=== PATIENT | female | born 1965 | race Caucasian/White ===

== ENCOUNTER 2021-07-01 15:57 | Emergency (ER) | payer OTHER ==
[2021-07-01 16:06] VITALS: RESP 18; TEMP 97.9
[2021-07-01 17:06] LABS: Basophils % (A) 1 %; Eosinophils # (A) 0.1 k/uL (0-0.7); Eosinophils % (A) 1 %; HCT 39.5 % (34.0-46.0); HGB 13.6 gm/dL (11.4-16.0); Lymphocytes # (A) 2.4 k/uL (1.0-4.8); Lymphocytes % (A) 28 %; MCH 30.7 pg (25.0-35.0); MCHC 34.3 g/dL (31.0-37.0); MCV 89.3 fL (80.0-100.0); Mean Platelet Volume 7.6; Monocytes # (A) 0.5 k/uL (0-1.0); Monocytes % (A) 6 %; Neutrophils # (A) 5.4 k/uL (1.3-7.7); Neutrophils % (A) 64 %; Platelet Count 268 k/uL (150-450); RBC 4.42 m/uL (3.80-5.40); RDW 11.9 % (11.5-15.5); WBC 8.5 k/uL (3.8-10.6)
[2021-07-01 17:14] LABS: ALT 22 U/L (4-34); AST 33 U/L (14-36); African American GFR (CKD) >90 (>60 ml/min/1.73 sqM); Albumin 4.2 g/dL (3.5-5.0); Alkaline Phosphatase 74 U/L (38-126); Anion Gap 10 mmol/L; Blood Urea Nitrogen 18 mg/dL (7-17); Calcium 9.4 mg/dL (8.4-10.2); Carbon Dioxide 24 mmol/L (22-30); Chloride 104 mmol/L (98-107); Glucose 109 mg/dL (74-99); Non-African American GFR(CKD) >90 (>60 ml/min/1.73 sqM); Potassium 3.5 mmol/L (3.5-5.1); Sodium 138 mmol/L (137-145); Total Bilirubin 0.5 mg/dL (0.2-1.3); Total Protein 6.8 g/dL (6.3-8.2)
[2021-07-01] MEDS ORDERED: MORPHINE SULFATE 4 MG/ML SYRINGE IVP STA (17:21)
[2021-07-01 17:24] LABS: Partial Thromboplastin Time 22.2 sec (22.0-30.0); Prothrombin Time 10.9 sec (9.0-12.0)
--- NOTE | 2021-07-01 17:40 | ED ---
General Adult HPI - General Chief complaint: Fall Stated complaint: IHS - head injury Source: patient, EMS Mode of arrival: EMS Limitations: no limitations - History of Present Illness Initial comments: Patient is a 55-year-old female who works at [employer]. She states that she was walking when a piece of metal was being tense and it swung and hit her in the abdomen. It pushed her backwards and she landed on her tailbone. Patient and additionally fell backwards and hit her head and losing consciousness for about a minute. She was placed in a c-collar and brought into the emergency department complaining of bilateral elbow and wrist pain. She reports to a large hematoma to her head but did not notice any blood at the site. She was nonambulatory. She also reports 2 tailbone pain. No chest pain or short of breath. She denies any abdominal pain. Patient is not on any blood thinners. Denies any numbness, tingling or weakness in her hands. Patient does have some decreased efficiency clerk strength in her bilateral hands due to chronic arthritis. No other alleviating, precipitating or modifying factors - Related Data Allergies Allergy/AdvReac Type Severity Reaction Status Date / Time No Known Allergies Allergy Verified 07/01/21 16:06 Review of Systems ROS Statement: Those systems with pertinent positive or pertinent negative responses have been documented in the HPI. ROS Other: All systems not noted in ROS Statement are negative. Past Medical History History of Any Multi-Drug Resistant Organisms: None Reported Past Surgical History: Appendectomy Additional Past Surgical History / Comment(s): Eye surdery, Appendix removed 1995. Past Psychological History: No Psychological Hx Reported Smoking Status: Never smoker Past Alcohol Use History: None Reported Past Drug Use History: None Reported General Exam Limitations: no limitations General appearance: alert, in no apparent distress Head exam: Present: other (hematoma - occiput. No laceration or abrasion. no palpable step off) Eye exam: Present: normal appearance, PERRL, EOMI. Absent: scleral icterus, conjunctival injection, periorbital swelling ENT exam: Present: normal exam, mucous membranes moist Neck exam: Present: normal inspection. Absent: tenderness, meningismus, lymphadenopathy Respiratory exam: Present: normal lung sounds bilaterally. Absent: respiratory distress, wheezes, rales, rhonchi, stridor Cardiovascular Exam: Present: regular rate, normal rhythm, normal heart sounds. Absent: systolic murmur, diastolic murmur, rubs, gallop, clicks GI/Abdominal exam: Present: soft, normal bowel sounds. Absent: distended, tenderness, guarding, rebound, rigid Extremities exam: Present: normal inspection, full ROM, normal capillary refill. Absent: tenderness, pedal edema, joint swelling, calf tenderness Back exam: Present: normal inspection Neurological exam: Present: alert, oriented X3, CN II-XII intact Psychiatric exam: Present: normal affect, normal mood Skin exam: Present: warm, dry, intact, normal color. Absent: rash Course Vital Signs 07/01/21 07/01/21 07/01/21 15:58 17:00 18:00 Temperature 97.9 F Pulse Rate 75 80 86 Respiratory 18 18 18 Rate Blood Pressure 154/93 130/76 136/80 O2 Sat by Pulse 100 100 99 Oximetry 07/01/21 19:00 Temperature Pulse Rate 84 Respiratory 18 Rate Blood Pressure 148/81 O2 Sat by Pulse 100 Oximetry - Reevaluation(s) Reevaluation #1: 07/01/21 18:43 CT reviewed by myself at this time. Nondisplaced occipital fracture identified however did not receive a call from the radiologist. Reevaluation #2: Spoke with patient - agreeable to transfer. Attempting transfer to [facility] 07/01/21 18:51 Reevaluation #3: still on hold waiting for [facility] 07/01/21 19:24 Reevaluation #4: 07/01/21 19:39 Stopped attempted transfer to [place]. Attempted transfer to [facility]. Accepting doctor is Dr. Rodriguez EKG Findings - EKG Comments: EKG Findings:: EKG demonstrates sinus rhythm with a rate of 77. NC interval 157. QRS 89. QTC of 401. No acute ST segment elevations or depressions concerning for ischemic changes Medical Decision Making - Medical Decision Making Upon arrival patient is placed into room 2. She did not meet trauma criteria and therefore, was not activated. I evaluated the patient was complaining of right elbow and bilateral wrist pain. Patient originally was refusing pain medication however then agreed. She was given 4 mg of morphine. Patient sent for CT of the brain and cervical spine. Does demonstrate a nondisplaced occipital bone fracture. CT of the abdomen and pelvis fails to demonstrate any traumatic injuries. Laboratory studies are within normal limits. X-rays of the chest, right elbow, bilateral forearms and bilateral wrists/hands are negative for any acute injuries. Because of the occipital fracture did recommend neurosurgical evaluation. Patient will be transferred at this time. Did attempt transfer to [facility] who after 40 minutes failed to answer our phone calls. Transfer then attempted to [facility]. Accepting doctor is Dr. Rodriguez. - Lab Data Result diagrams: 07/01/21 16:49 07/01/21 16:49 Lab Results 07/01/21 07/01/21 07/01/21 Range/Units 16:49 16:49 16:49 WBC 8.5 (3.8-10.6) k/uL RBC 4.42 (3.80-5.40) m/uL Hgb 13.6 (11.4-16.0) gm/dL Hct 39.5 (34.0-46.0) % MCV 89.3 (80.0-100.0) fL MCH 30.7 (25.0-35.0) pg MCHC 34.3 (31.0-37.0) g/dL RDW 11.9 (11.5-15.5) % Plt Count 268 (150-450) k/uL MPV 7.6 Neutrophils % 64 % Lymphocytes % 28 % Monocytes % 6 % Eosinophils % 1 % Basophils % 1 % Neutrophils # 5.4 (1.3-7.7) k/uL Lymphocytes # 2.4 (1.0-4.8) k/uL Monocytes # 0.5 (0-1.0) k/uL Eosinophils # 0.1 (0-0.7) k/uL Basophils # 0.0 (0-0.2) k/uL PT 10.9 (9.0-12.0) sec INR 1.0 (<1.2) APTT 22.2 (22.0-30.0) sec Sodium 138 (137-145) mmol/L Potassium 3.5 (3.5-5.1) mmol/L Chloride 104 (98-107) mmol/L Carbon Dioxide 24 (22-30) mmol/L Anion Gap 10 mmol/L BUN 18 H (7-17) mg/dL Creatinine 0.57 (0.52-1.04) mg/dL Est GFR (CKD-EPI)AfAm >90 (>60 ml/min/1.73 sqM) Est GFR (CKD-EPI)NonAf >90 (>60 ml/min/1.73 sqM) Glucose 109 H (74-99) mg/dL Calcium 9.4 (8.4-10.2) mg/dL Total Bilirubin 0.5 (0.2-1.3) mg/dL AST 33 (14-36) U/L ALT 22 (4-34) U/L Alkaline Phosphatase 74 (38-126) U/L Troponin I (0.000-0.034) ng/mL Total Protein 6.8 (6.3-8.2) g/dL Albumin 4.2 (3.5-5.0) g/dL 07/01/21 Range/Units 16:49 WBC (3.8-10.6) k/uL RBC (3.80-5.40) m/uL Hgb (11.4-16.0) gm/dL Hct (34.0-46.0) % MCV (80.0-100.0) fL MCH (25.0-35.0) pg MCHC (31.0-37.0) g/dL RDW (11.5-15.5) % Plt Count (150-450) k/uL MPV Neutrophils % % Lymphocytes % % Monocytes % % Eosinophils % % Basophils % % Neutrophils # (1.3-7.7) k/uL Lymphocytes # (1.0-4.8) k/uL Monocytes # (0-1.0) k/uL Eosinophils # (0-0.7) k/uL Basophils # (0-0.2) k/uL PT (9.0-12.0) sec INR (<1.2) APTT (22.0-30.0) sec Sodium (137-145) mmol/L Potassium (3.5-5.1) mmol/L Chloride (98-107) mmol/L Carbon Dioxide (22-30) mmol/L Anion Gap mmol/L BUN (7-17) mg/dL Creatinine (0.52-1.04) mg/dL Est GFR (CKD-EPI)AfAm (>60 ml/min/1.73 sqM) Est GFR (CKD-EPI)NonAf (>60 ml/min/1.73 sqM) Glucose (74-99) mg/dL Calcium (8.4-10.2) mg/dL Total Bilirubin (0.2-1.3) mg/dL AST (14-36) U/L ALT (4-34) U/L Alkaline Phosphatase (38-126) U/L Troponin I <0.012 (0.000-0.034) ng/mL Total Protein (6.3-8.2) g/dL Albumin (3.5-5.0) g/dL Disposition Clinical Impression: Fall, Concussion, Fracture of occipital bone of skull with loss of consciousness, Blunt abdominal trauma, Right elbow pain, Bilateral wrist pain Disposition: OTHER INSTITUTION NOT DEFINED Condition: Stable Is patient prescribed a controlled substance at d/c from ED?: No Referrals: Aureliano Stephen MD [Primary Care Provider] - 1-2 days - Out of Hospital Transfer - Req. Specs Out of Hospital Transfer - Requested Specifics: Other Emergency Center ([facility])
--- NOTE | 2021-07-01 18:13 | CT ---
EXAMINATION TYPE: CT abdomen pelvis w con DATE OF EXAM: 07/01/2021 COMPARISON: None HISTORY: trauma CT DLP: 880 mGycm Automated exposure control for dose reduction was used. CONTRAST: Performed with IV Contrast, patient injected with 100 mL of Isovue 300. Images obtained from the diaphragm to the floor the pelvis with IV contrast. The lung bases are clear. There is no pleural effusion. Heart size is normal. There is no pericardial effusion. There is small cyst in the superior right lobe of the liver. Gallbladder appears normal. Spleen is in tact. Stomach is intact. There is no evidence of pancreatic mass. There is no adrenal mass. There is a mass on the anterior left kidney which has mixed fat and soft ti ssue density measuring 4.3 cm in maximum dimension. This is consistent with angiomyolipoma. The right kidney appears normal. There is small left renal parapelvic cysts. Delayed images show normal renal excretion. There is no retroperitoneal adenopathy. Bladder distends smoothly. There is no inguinal he rnia. There is no free fluid in the pelvis. Uterus is anteverted. There is no pelvic mass. There is no mesenteric edema. There is no ascites or free air. There is no bowel obstruction. Appendi x not clearly seen. No sign of thickened appendix. The lumbar vertebrae have normal alignment. There is no compression fracture. The bony pelvis is intact. Hip joints are intact. Sacroiliac joints appea r normal. There is no lumbar paraspinal mass. Sacrum and coccyx appear intact. IMPRESSION: No evidence of acute traumatic injury in the abdomen and pelvis. Mixed density left renal mass consistent with angiomyolipoma.
--- NOTE | 2021-07-01 18:19 | CT ---
EXAMINATION TYPE: CT brain cspine wo con DATE OF EXAM: 07/01/2021 COMPARISON: None HISTORY: trauma CT DLP: 1232 mGycm Automated exposure control for dose reduction was used. Images of the brain and cervical spine obtained without contrast. Ventricles of normal size. There is no mass effect or midline shift. There is no sign of intracranial hemorrhage. There is no evidence of cerebral edema. There is linear defect in the left occipital bon e near the midline consistent with a nondisplaced fracture. This extends to the skull base and superi danielle to the lambdoid suture. There is normal aeration of the mastoid sinuses. The cervical vertebra show some mild straightening. There is degenerative mild disc space narrowing a t C5-6 and C6-7 with spurring of the endplates. The posterior elements are intact. Facet joints are i ntact. There is no evidence of focal bone destruction. IMPRESSION: Nondisplaced occipital bone fracture. No acute intracranial abnormality. Mild spondylotic changes in the lower cervical spine. No cervical spine fracture.
--- NOTE | 2021-07-01 18:50 | XR ---
EXAMINATION TYPE: XR chest 2V DATE OF EXAM: 07/01/2021 COMPARISON: 08/22/2013 HISTORY: Pain TECHNIQUE: 2 views FINDINGS: There is no heart failure or confluent pneumonic infiltrate. Heart and mediastinum are norm al. There are chest leads. Costophrenic angles are clear. IMPRESSION: No active cardiopulmonary disease. Normal heart. No change.
[2021-07-01] MEDS ORDERED: ONDANSETRON 4 MG/2 ML VIAL IVP STA (18:52)
--- NOTE | 2021-07-01 18:53 | XR ---
EXAMINATION TYPE: XR elbow complete RT DATE OF EXAM: 07/01/2021 COMPARISON: NONE HISTORY: Pain TECHNIQUE: 3 views FINDINGS: There is no evidence of fracture nor dislocation. Elbow joint spaces are fairly normal. The re is no sign of a joint effusion. IMPRESSION: Negative right elbow exam. No fracture.
--- NOTE | 2021-07-01 18:54 | XR ---
EXAMINATION TYPE: XR forearm bilateral DATE OF EXAM: 07/01/2021 COMPARISON: NONE HISTORY: Pain TECHNIQUE: 4 views FINDINGS: Radius and ulna appear intact. I see no fracture nor dislocation. The wrist joint and elbow joint appear intact. There is no sign of elbow joint effusion. IMPRESSION: Negative left and right forearm exam.
--- NOTE | 2021-07-01 18:58 | XR ---
EXAMINATION TYPE: XR wrist complete BILATERAL DATE OF EXAM: 07/01/2021 COMPARISON: NONE HISTORY: Pain. Injury. TECHNIQUE: 8 views FINDINGS: I see no definite fracture nor dislocation. Metacarpals are intact. Radiocarpal joints are intact. Intercarpal joint spaces are fairly normal. There is no evidence of focal bone destruction. S caphoid bones appear intact. IMPRESSION: Negative bilateral wrist exam. No fracture seen.
[2021-07-01] MEDS ORDERED: diphenhydrAMINE 50 MG/ML 1 ML VIAL IVP STA (19:53)
[2021-07-01] MEDS ORDERED: METOCLOPRAMIDE 5 MG/ML 2 ML VIAL IVP STA (19:53)
[2021-07-01 20:23] VITALS: BP 130/80; PULSE 89
== END 2021-07-01 20:26 | disposition other institution (70) ==
LOC: EC 15:57
DX: S06.0X9A Concussion with loss of consciousness of unspecified duration, initial encounter (principal); W19.XXXA Unspecified fall, initial encounter
CPT/HCPCS: 93005; 80053; 84484; 85025; 85610; 85730; 73110; 73090; 73080; 71046; 72125; 70450; 74177; 99284; 96374; 96375; J2270; J1200; J2765; J2405; Q9967

== ENCOUNTER 2022-02-21 22:06 | Emergency (ER) | payer OTHER ==
[2022-02-22] MEDS ORDERED: ACETAMINOPHEN TAB 325 MG TAB PO STA (00:40)
[2022-02-22] MEDS ORDERED: IBUPROFEN 600 MG TAB PO STA (00:40)
--- NOTE | 2022-02-22 00:46 | ED ---
General Adult HPI - General Chief complaint: Headache Stated complaint: Migraine Time Seen by Provider: 02/22/22 00:30 Source: patient, family, RN notes reviewed, old records reviewed Mode of arrival: wheelchair Limitations: no limitations - History of Present Illness Initial comments: 56-year-old female comes in with aches, chills, headache and nausea since yesterday. she has not had any Tylenol or Motrin today. She does have history of a skull fracture and she is concerned that this may be a migraine headache. -: days(s) (2) Location: head Severity scale (1-10): 8 Quality: aching Consistency: constant Associated Symptoms: malaise, nausea/vomiting (no vomiting), other (body aches) Treatments Prior to Arrival: none - Related Data Allergies Allergy/AdvReac Type Severity Reaction Status Date / Time No Known Allergies Allergy Verified 02/21/22 22:32 Review of Systems ROS Statement: Those systems with pertinent positive or pertinent negative responses have been documented in the HPI. ROS Other: All systems not noted in ROS Statement are negative. Past Medical History Past Medical History: No Reported History History of Any Multi-Drug Resistant Organisms: None Reported Past Surgical History: Appendectomy Additional Past Surgical History / Comment(s): Eye surdery, Appendix removed 1995. Past Psychological History: No Psychological Hx Reported Smoking Status: Never smoker Past Alcohol Use History: None Reported Past Drug Use History: None Reported General Exam Limitations: no limitations General appearance: alert, in no apparent distress Head exam: Present: atraumatic Eye exam: Present: normal appearance. Absent: scleral icterus, conjunctival injection ENT exam: Present: mucous membranes moist Neck exam: Absent: tenderness, meningismus Respiratory exam: Present: normal lung sounds bilaterally. Absent: respiratory distress, wheezes, rales, rhonchi, stridor, chest wall tenderness, accessory muscle use Cardiovascular Exam: Present: regular rate GI/Abdominal exam: Present: soft, distended, tenderness Extremities exam: Present: normal inspection, normal capillary refill Back exam: Absent: tenderness, CVA tenderness (R), CVA tenderness (L), rash noted Neurological exam: Present: alert, oriented X3 Psychiatric exam: Present: normal affect, normal mood Skin exam: Present: warm, dry, normal color. Absent: cyanosis, diaphoretic, petechiae, pallor Course Vital Signs 02/21/22 02/22/22 22:30 01:18 Temperature 99.4 F 98.5 F Pulse Rate 86 96 Respiratory 18 20 Rate Blood Pressure 131/81 117/64 O2 Sat by Pulse 100 100 Oximetry Medical Decision Making - Medical Decision Making patient presents with fever, body aches, nausea and headaches since yesterday. She is covid positive, has not been vaccinated. She was offered paxlovid and d eclined. lungs sounds are clear to auscultation. Vital signs are stable. oxygen saturation is 100% on room air. Abdomen is soft and nontender she was directed to take Tylenol and or Motrin as needed for any body aches or fevers. Increase her fluid intake. She was encourage to take vitamin C, vitamin D and zinc daily to improve immune health. She was offered Zofran and states she has Zofran at home. She was directed to follow up with her primary care doctor next week, return to the emergency room with any new or concerning symptoms. She was also directed to self quarantine for 10 days from symptom onset and 24 hours without fever case discussed with Dr roblero - Lab Data Lab Results 02/21/22 Range/Units 22:33 Influenza Type A (PCR) Not Detected (Not Detectd) Influenza Type B (PCR) Not Detected (Not Detectd) RSV (PCR) Not Detected (Not Detectd) SARS-CoV-2 (PCR) Detected A (Not Detectd) Disposition Clinical Impression: COVID-19 Disposition: HOME SELF-CARE Condition: Good Instructions (If sedation given, give patient instructions): Acute Headache (ED), COVID-19 (Coronavirus Disease 2019) (ED) Additional Instructions: Increase your fluid intake. Tylenol and or Motrin as needed for body aches of fevers. Vitamin C, Vitamin D and zinc daily to improve immune health. Return to the ER if any new or concerning symptoms including chest pain, difficulty breathing, or persistent nausea/vomiting. Follow-up with your primary care doctor next week. Self quarantine until symptoms resolve and 24 hours without a fever. Is patient prescribed a controlled substance at d/c from ED?: No Referrals: Aureliano Stephen MD [Primary Care Provider] - 1-2 days Time of Disposition: 00:46
[2022-02-22] MEDS: ONDANSETRON ODT 4 MG TAB PO STA ×2 (01:11→01:12)
[2022-02-22] MEDS ORDERED: ONDANSETRON ODT 4 MG TAB PO STA (01:11)
[2022-02-22 01:19] VITALS: BP 117/64; PULSE 96; RESP 20; TEMP 98.5
== END 2022-02-22 01:29 | disposition home or self-care (01) ==
LOC: EC 22:06
DX: U07.1 COVID-19 (principal)
CPT/HCPCS: 87636

== ENCOUNTER → 2023-06-22 | Outpatient (CLI) | payer OTHER ==
--- NOTE | 2023-06-23 22:07 | MM ---
Reason for Exam: Screening (asymptomatic). Last mammogram was performed 4 year(s) and 11 month(s) ago. Patient History: Menarche at age 16. Postmenopausal. Risk Values: Ange 5 year model risk: 0.8%. NCI Lifetime model risk: 5.3%. Prior Study Comparison: 05/08/2014 Bilateral Screening Mammogram, [facility]. 07/21/2018 Bilateral Screening Mammogram, [facility]. Tissue Density: The breast tissue is heterogeneously dense. This may lower the sensitivity of mammography. Findings: Analyzed By CAD. There is no suspicious group of microcalcifications or new suspicious mass in either breast. Overall Assessment: Negative, BI-RAD 1 Management: Screening Mammogram of both breasts in 1 year. . Patient should continue monthly self-breast exams. A clinical breast exam by your physician is recommended on an annual basis. This exam should not preclude additional follow-up of suspicious palpable abnormalities. Note on Ange scores and lifetime risk: 1. A Ange score greater than 3% is considered moderate risk. If this is the case, consider specialist referral to assess eligibility for a risk reducing agent. 2. If overall lifetime risk for the development of breast cancer is 20% or higher, the patient may qualify for future screening with alternating mammogram and breast MRI. Electronically signed and approved by: Camron Raza M.D. Radiologist
== END | disposition home or self-care (01) ==
LOC: RADMAMWWP 08:18
PROVIDERS: ATTEND Family Medicine
DX: Z12.31 Encounter for screening mammogram for malignant neoplasm of breast (principal); Z78.0 Asymptomatic menopausal state
CPT/HCPCS: 77063; 77067

== ENCOUNTER → 2023-06-22 | Outpatient (CLI) | payer OTHER ==
--- NOTE | 2023-06-22 17:38 | BD ---
EXAMINATION TYPE: Axial Bone Density DATE OF EXAM: 06/22/2023 CLINICAL HISTORY: 57 years old Female. ICD-10 CODE: Z78.0 ASYMPTOMATIC MENOPAUSAL STATE Height: 66.7 in Weight: 144 lbs FRAX RISK QUESTIONS: History of Fracture in Adulthood: skull fx age 55 EXAM MEASUREMENTS: Bone mineral densitometry was performed using the [employer] System. Bone mineral density as measured about the Lumbar spine is: ----- L1-L4(G/cm2): 0.854 T Score Values are as follows: ----- L1: -3.1 ----- L2: -3.3 ----- L3: -2.4 ----- L4: -2.4 ----- L1-L4: -2.7 Z Score Values are as follows: ----- L1: -2.2 ----- L2: -2.4 ----- L3: -1.5 ----- L4: -1.5 ----- L1-L4: -1.8 Bone mineral density baseline Bone mineral density about the R hip (g/cm2): 0.643 Bone mineral density about the L hip (g/cm2): 0.618 T Score values are as follows: -----R Neck: -2.7 -----L Neck: -2.8 -----R Total: -2.9 -----L Total: -3.1 Z Score values are as follows: -----R Neck: -1.6 -----L Neck: -1.7 -----R Total: -2.2 -----L Total: -2.4 Bone mineral density baseline FRAX%s: The graph provided illustrates a 19.3% chance for a major osteoporotic fx and a 5.2% chance f or the hips probability for fx in 10 years time. IMPRESSION: Osteoporosis (T Score less than -2.5). There is increased fracture risk and therapy is usually indicated based on age. Re-Screen 1-2 years. NOTE: T-SCORE=SD OF THE YOUNG ADULT MEAN.
== END | disposition home or self-care (01) ==
LOC: RADBDWWP 08:16
PROVIDERS: ATTEND Family Medicine
DX: M81.0 Age-related osteoporosis without current pathological fracture (principal); M85.88 Other specified disorders of bone density and structure, other site; Z78.0 Asymptomatic menopausal state
CPT/HCPCS: 77080

== ENCOUNTER → 2023-09-18 | Outpatient (CLI) | payer OTHER ==
[2023-09-19 02:29] LABS: Alternaria alternata IgE <0.10 kU/L; Aspergillus fumagatus IgE <0.10 kU/L; Birch IgE <0.10 kU/L; Cat Epith & Dander IgE <0.10 kU/L; Cladosporian herbarum IgE <0.10 kU/L; Cockroach IgE <0.10 kU/L; Dermato. farinae IgE <0.10 kU/L; Dog Dander IgE <0.10 kU/L; Elm IgE <0.10 kU/L; Maple (Box Elder) IgE <0.10 kU/L; Oak IgE <0.10 kU/L; Ragweed,Common IgE <0.10 kU/L; Red Top (Bentgrass) IgE <0.10 kU/L
== END | disposition home or self-care (01) ==
LOC: LABWHC1 09:31
PROVIDERS: ATTEND Internal Medicine Critical Care Medicine
DX: J45.40 Moderate persistent asthma, uncomplicated (principal)
CPT/HCPCS: 36415; 82785; 85008; 86003

== ENCOUNTER → 2023-10-29 | Outpatient (CLI) | payer OTHER ==
--- NOTE | 2023-10-29 10:48 | FL ---
ESOPHOGRAM. HISTORY: Dysphagia Esophagram was performed per the air contrast technique. The patient swallowed barium and effervesce nt crystals without difficulty or delay. Esophageal peristalsis and motility appear to be within normal limits. There is no evidence for filling defect, mass or diverticulum. No hiatal hernia seen. Subsequently single contrast cervical esophagram was performed which fails demonstrate evidence for a spiration penetration or mass. IMPRESSION: Unremarkable study.
--- NOTE | 2023-10-29 12:10 | US ---
EXAMINATION TYPE: US thyroid st tissue head/neck DATE OF EXAM: 10/29/2023 COMPARISON: 07/22/2021 CLINICAL INDICATION: Female, 57 years old with history of E04.1 NONTOXIC THYROID NODULE; Follow up th yroid nodule. Not on thyroid meds. GLAND SIZE: Right Lobe: 4.3 x 1.2 x 1.4 cm Overall Parenchyma: homogeneous Left Lobe: 3.8 x 1.4 x 1.3 cm Overall Parenchyma: homogeneous Isthmus Thickness: 0.2 cm NODULES RIGHT: # of nodules measured on right: 2- multiple small nodules, largest measured 1. 0.4 X 0.3 x 0.3 cm, upper medial, solid or almost completely solid, hypoechoic nodule, which is wider than tall, with smooth margins, without echogenic foci. Prior size: 0.3 x 0.3 x 0.2 cm 2. 1.4 X 1.1 x 1.1 cm, lower mid, solid or almost completely solid, isoechoic nodule, which is wid er than tall, with smooth margins, without echogenic foci. Prior size: 1.4 x 1.3 x 1.0 cm LEFT: # of nodules measured on left: 2 1. 0.5 X 0.5 x 0.4 cm, mid mid, solid or almost completely solid, isoechoic nodule, which is wider than tall, with smooth margins, without echogenic foci. Prior size: 0.4 x 0.4 x 0.3 cm 2. 1.3 X 0.9 x 0.8 cm, lower mid, solid or almost completely solid, isoechoic nodule, which is wide r than tall, with smooth margins, without echogenic foci. Prior size: 1.1 x 1.0 x 0.8 cm ISTHMUS: # of nodules measured in the isthmus: 0 Bilateral neck scanned, no evidence of lymphadenopathy. IMPRESSION: 1. No thyromegaly. 2. Stable thyroid nodules. Stable 0.4 cm TR for nodule on the right. 3. Routine screening. FNA not recommended at this time. 2017 ACR TI-RADS LEVEL: TR 4 *Highest TI-RADS level nodule reported
== END | disposition home or self-care (01) ==
LOC: RADUSWWP 09:44
PROVIDERS: ATTEND Otolaryngology
DX: E04.2 Nontoxic multinodular goiter (principal); R13.10 Dysphagia, unspecified
CPT/HCPCS: 74220; 76536

== ENCOUNTER 2024-04-07 15:06 | Emergency (ER) | payer OTHER ==
[2024-04-07 15:20] VITALS: TEMP 98
--- NOTE | 2024-04-07 16:01 | ED ---
General Adult HPI - General Chief complaint: Recheck/Abnormal Lab/Rx Stated complaint: vomiting Time Seen by Provider: 04/07/24 15:25 Source: patient, RN notes reviewed, old records reviewed Mode of arrival: ambulatory Limitations: no limitations - History of Present Illness Initial comments: This is a 58-year-old female who presents to the emergency department stating that on Thursday night she had some food [place] bowling alley and since then she has not been feeling well she has right upper quadrant and epigastric abdominal pain. Patient also has been vomiting since Thursday night. Patient denies any diarrhea. Patient denies any chest pain difficulty breathing shortness of breath. Patient has any fever chills. Patient denies any dysuria hematuria urinary frequency. Patient has had appendicitis and had an appendectomy years ago. Patient still has her gallbladder. - Related Data Allergies Allergy/AdvReac Type Severity Reaction Status Date / Time No Known Allergies Allergy Verified 04/07/24 15:20 Review of Systems ROS Statement: Those systems with pertinent positive or pertinent negative responses have been documented in the HPI. ROS Other: All systems not noted in ROS Statement are negative. Past Medical History Past Medical History: No Reported History History of Any Multi-Drug Resistant Organisms: None Reported Past Surgical History: Appendectomy Additional Past Surgical History / Comment(s): Eye surdery, Appendix removed 1995. Past Psychological History: No Psychological Hx Reported Smoking Status: Never smoker Past Alcohol Use History: None Reported Past Drug Use History: None Reported General Exam - General Exam Comments Initial Comments: GENERAL: Patient is well-developed and well-nourished. Patient is nontoxic and well- hydrated and is in mild distress. ENT: Neck is soft and supple. No significant lymphadenopathy is noted. Oropharynx is clear. Moist mucous membranes. Neck has full range of motion without e liciting any pain. EYES: The sclera were anicteric and conjunctiva were pink and moist. Extraocular movements were intact and pupils were equal round and reactive to light. Eyelids were unremarkable. PULMONARY: Unlabored respirations. Good breath sounds bilaterally. No audible rales rhonchi or wheezing was noted. CARDIOVASCULAR: There is a regular rate and rhythm without any murmurs gallops or rubs. ABDOMEN: Patient has right upper quadrant and epigastric abdominal tenderness on palpat ion SKIN: Skin is clear with no lesions or rashes and otherwise unremarkable. NEUROLOGIC: Patient is alert and oriented x3. Cranial nerves II through XII are grossly intact. Motor and sensory are also intact. Normal speech, volume and content. Symmetrical smile. MUSCULOSKELETAL: Normal extremities with adequate strength and full range of motion. No lower extremity swelling or edema. No calf tenderness. LYMPHATICS: No significant lymphadenopathy is noted PSYCHIATRIC: Normal psychiatric evaluation. Limitations: no limitations Course Vital Signs 04/07/24 15:18 Temperature 98.0 F Pulse Rate 68 Respiratory 15 Rate Blood Pressure 170/90 O2 Sat by Pulse 100 Oximetry Medical Decision Making - Medical Decision Making EKG is interpreted by myself. EKG shows sinus bradycardia 51 bpm. SD interval is 128 QRS is 85 QT interval is 454 QTc is 430. Patient's EKG shows no ST segment ovation or depression Was pt. sent in by a medical professional or institution ([facility], PHARMACY TECH CUSTOMER SERVICE, urgent care, hospital, or [facility]...) When possible be specific @ -No Did you speak to anyone other than the patient for history (EMS, parent, family, police, friend...)? What history was obtained from this source @ -No Did you review nursing and triage notes (agree or disagree)? Why? @ -I reviewed and agree with nursing and triage notes Were old charts reviewed (outside hosp., previous admission, EMS record, old EKG, old radiological studies, urgent care reports/EKG's, [facility] records)? Report findings @ -No old charts were reviewed Differential Diagnosis? @ -Acute vomiting, viral syndrome, gastroenteritis, gastritis, this is not an all-inclusive list EKG interpreted by me (3pts min.). @ -As above X-rays interpreted by me (1pt min.). @ -None done CT interpreted by me (1pt min.). @ -None done U/S interpreted by me (1pt. min.). @ -Patient's ultrasound of the gallbladder shows no acute abnormality What testing was considered but not performed or refused? (CT, X-rays, U/S, labs)? Why? @ -None What meds were considered but not given or refused? Why? @ -None Did you discuss the management of the patient with other professionals (professionals i.e. [facility], PHARMACY TECH CUSTOMER SERVICE, lab, RT, psych nurse, social media content specialist, pulper operator, teacher, delinquency prevention officer, family independence case manager)? Give summary @ -No Was smoking cessation discussed for >3mins.? @ -No Was critical care preformed (if so, how long)? @ -No Were there social determinants of health that impacted care today? How? (Homelessness, low income, unemployed, alcoholism, drug addiction, transportation, low edu. Level, literacy, decrease access to med. care, custodial, rehab)? @ -No Was there de-escalation of care discussed even if they declined (Discuss DNR or withdrawal of care, Hospice)? DNR status @ -No What co-morbidities impacted this encounter? (DM, HTN, Smoking, COPD, CAD, Cancer, CVA, ARF, Chemo, Hep., AIDS, mental health diagnosis, sleep apnea, morbid obesity)? @ -None Was patient admitted / discharged? Hospital course, mention meds given and route, prescriptions, significant lab abnormalities, going to OR and other pertinent info. @ -Patient received Zofran and a liter of fluid and was feeling considerably better when I went back and talk to where she had no nausea at this time. Patient was ready to go home at this time. Undiagnosed new problem with uncertain prognosis? @ -No Drug Therapy requiring intensive monitoring for toxicity (Heparin, Nitro, Insulin, Cardizem)? @ -No Were any procedures done? @ -No Diagnosis/symptom? @ -Acute vomiting Acute, or Chronic, or Acute on Chronic? @ -Acute Uncomplicated (without systemic symptoms) or Complicated (systemic symptoms)? @ -Complicate Side effects of treatment? @ -No Exacerbation, Progression, or Severe Exacerbation? @ -No Poses a threat to life or bodily function? How? (Chest pain, [place], [place], pneumonia, PE, COPD, DKA, ARF, appy, cholecystitis, CVA, Diverticulitis, Homicidal, Suicidal, threat to staff... and all critical care pts) @ -No - Lab Data Result diagrams: 04/07/24 16:32 04/07/24 17:07 Lab Results 04/07/24 04/07/24 Range/Units 16:32 17:07 WBC 7.5 (3.8-10.6) k/uL RBC 5.05 (3.80-5.40) m/uL Hgb 15.3 (11.4-16.0) gm/dL Hct 45.4 (34.0-46.0) % MCV 89.9 (80.0-100.0) fL MCH 30.4 (25.0-35.0) pg MCHC 33.8 (31.0-37.0) g/dL RDW 12.3 (11.5-15.5) % Plt Count 283 (150-450) k/uL MPV 7.2 Neutrophils % 72 % Lymphocytes % 20 % Monocytes % 6 % Eosinophils % 0 % Basophils % 0 % Neutrophils # 5.4 (1.3-7.7) k/uL Lymphocytes # 1.5 (1.0-4.8) k/uL Monocytes # 0.5 (0-1.0) k/uL Eosinophils # 0.0 (0-0.7) k/uL Basophils # 0.0 (0-0.2) k/uL Sodium 137 (137-145) mmol/L Potassium 3.8 (3.5-5.1) mmol/L Chloride 108 H (98-107) mmol/L Carbon Dioxide 24 (22-30) mmol/L Anion Gap 5 mmol/L BUN 16 (7-17) mg/dL Creatinine 0.62 (0.52-1.04) mg/dL Est GFR (CKD-EPI)AfAm >90 (>60 ml/min/1.73 sqM) Est GFR (CKD-EPI)NonAf >90 (>60 ml/min/1.73 sqM) Glucose 95 (74-99) mg/dL Calcium 9.1 (8.4-10.2) mg/dL Total Bilirubin 1.0 (0.2-1.3) mg/dL AST 21 (14-36) U/L ALT 17 (4-34) U/L Alkaline Phosphatase 80 (38-126) U/L Total Protein 6.5 (6.3-8.2) g/dL Albumin 4.1 (3.5-5.0) g/dL Amylase 67 (30-110) U/L Lipase 184 (23-300) U/L Disposition Clinical Impression: Acute vomiting Disposition: HOME SELF-CARE Condition: Good Instructions (If sedation given, give patient instructions): Acute Nausea and Vomiting (ED) Is patient prescribed a controlled substance at d/c from ED?: No Referrals: Aureliano Stephen MD [Primary Care Provider] - 1-2 days Time of Disposition: 18:34
[2024-04-07] MEDS: SODIUM CHLORIDE 0.9% 1,000 ML IV STA (16:34)
[2024-04-07] MEDS: ONDANSETRON 4 MG/2 ML VIAL IVP STA (16:34)
[2024-04-07 16:38] LABS: Basophils % (A) 0 %; Eosinophils % (A) 0 %; HCT 45.4 % (34.0-46.0); HGB 15.3 gm/dL (11.4-16.0); Lymphocytes # (A) 1.5 k/uL (1.0-4.8); Lymphocytes % (A) 20 %; MCH 30.4 pg (25.0-35.0); MCHC 33.8 g/dL (31.0-37.0); MCV 89.9 fL (80.0-100.0); Mean Platelet Volume 7.2; Monocytes # (A) 0.5 k/uL (0-1.0); Monocytes % (A) 6 %; Neutrophils # (A) 5.4 k/uL (1.3-7.7); Neutrophils % (A) 72 %; Platelet Count 283 k/uL (150-450); RBC 5.05 m/uL (3.80-5.40); RDW 12.3 % (11.5-15.5); WBC 7.5 k/uL (3.8-10.6)
--- NOTE | 2024-04-07 17:05 | US ---
EXAMINATION TYPE: US gallbladder DATE OF EXAM: 04/07/2024 COMPARISON: CT 07/01/2021 CLINICAL INDICATION: Female, 58 years old with history of Right upper quadrant and epigastric abdomin al pain;Pain TECHNIQUE: Grayscale and color Doppler imaging of the right upper quadrant was performed. FINDINGS: EXAM MEASUREMENTS: Liver Length: 14.9 cm Gallbladder Wall: .3 cm CBD: .4 cm Right Kidney: 9.3 x 4.4 x 4.9 cm TOOL CHECKER NOTES: Pancreas: wnl Liver: wnl Gallbladder: No stones seen Evidence for sonographic Francis's sign: No CBD: wnl Right Kidney: Hyperechoic area seen .7 x 1.0 x .6 cm. IMPRESSION: 1. Small hyperechoic area within the right kidney. Consider angiomyolipoma. This may correlate with a small fat lesion right kidney on prior CT. [facility], Workstation: [email or web address], 04/07/2024 5:03 PM
[2024-04-07 17:31] LABS: ALT 17 U/L (4-34); AST 21 U/L (14-36); African American GFR (CKD) >90 (>60 ml/min/1.73 sqM); Albumin 4.1 g/dL (3.5-5.0); Alkaline Phosphatase 80 U/L (38-126); Amylase 67 U/L (30-110); Anion Gap 5 mmol/L; Blood Urea Nitrogen 16 mg/dL (7-17); Calcium 9.1 mg/dL (8.4-10.2); Carbon Dioxide 24 mmol/L (22-30); Chloride 108 mmol/L (98-107); Glucose 95 mg/dL (74-99); Lipase 184 U/L (23-300); Non-African American GFR(CKD) >90 (>60 ml/min/1.73 sqM); Potassium 3.8 mmol/L (3.5-5.1); Sodium 137 mmol/L (137-145); Total Protein 6.5 g/dL (6.3-8.2)
[2024-04-07] MEDS: ONDANSETRON 4 MG ODT STARTER PACK 2 TAB BTL PO STA (18:43)
[2024-04-07 18:50] VITALS: BP 157/70; PULSE 53; RESP 18
== END 2024-04-07 18:49 | disposition home or self-care (01) ==
LOC: EC 15:06
DX: R11.10 Vomiting, unspecified (principal)
CPT/HCPCS: 36415; 93005; 80053; 82150; 83690; 85025; 76705; 99284; 96374; 96361 ×2; J2405; S0119